=== PATIENT | male | born 1955 | race American Indian/Alaskan Native ===

== ENCOUNTER 2016-09-16 23:31 | Emergency (ER) | payer MEDICARE ==
[2016-09-17] MEDS ORDERED: TORADOL IM ONE (03:05)
[2016-09-17] MEDS ORDERED: BENADRYL PO ONE (03:05)
[2016-09-17] MEDS ORDERED: FLEXERIL PO ONE (03:05)
--- NOTE | 2016-09-17 03:11 | Emergency Department Report ---
HPI - General Chief Complaint: Headache Time Seen by Provider: 09/17/16 02:38 - HPI HPI: 60-year-old female who presents today with left-sided neck and left temporal headache 2 days. Patient states that he was applying pressure 104 and at her prior to the pain. Denies history of headaches. Denies head injury or loss of consciousness. Describes his pain as it is a 10 constant, throbbing pain that is worse with movement. Tried aspirin without relief. Denies fever, chills, nausea, vomiting, dizziness, confusion, change in vision, chest pain, shortness of breath, abdominal pain. Positive for history of hypertension and is currently taking atenolol and amlodipine with his last dose being yesterday morning. ED Past Medical Hx - Past Medical History Previous Medical History?: Yes Hx Hypertension: Yes Hx Heart Attack/AMI: Yes (mild heart attack 2004) Hx Congestive Heart Failure: No Hx Diabetes: No Hx Seizures: Yes ("pseudoseizures") Hx Asthma: No Hx COPD: No - Surgical History Past Surgical History?: Yes Additional Surgical History: Keloid removal - Social History Smoking Status: Never Smoker Substance Use Type: Marijuana, Non Opiate Pain, Prescribed - Medications Home Medications: Home Medications Medication Instructions Recorded Confirmed Last Taken Type amLODIPine [Norvasc] 10 mg PO DAILY #30 tablet 04/27/15 06/25/15 06/24/15 Rx 10 MG Aspirin [Aspirin BABY CHEW TAB] 81 mg PO QDAY #30 tab.chew 06/25/15 Unknown Rx Atenolol [Tenormin] 25 mg PO DAILY #30 tab 06/25/15 Unknown Rx levETIRAcetam [Keppra TAB] 1,000 mg PO BID #120 tablet 06/25/15 Unknown Rx Ibuprofen [Motrin] 600 mg PO Q8H PRN #40 tablet 12/11/15 Unknown Rx traMADol [Ultram] 50 mg PO Q6HR PRN #20 tablet 12/11/15 Unknown Rx Cyclobenzaprine [Flexeril] 10 mg PO TID PRN #14 tablet 09/17/16 Unknown Rx Naproxen [Naprosyn] 500 mg PO BID #30 tablet 09/17/16 Unknown Rx ED Review of Systems ROS: Stated complaint: HEADACHE LT SIDE OF FACE Other details as noted in HPI Constitutional: denies: chills, fever, malaise Eyes: denies: eye pain, vision change ENT: denies: ear pain, throat pain, congestion Respiratory: denies: cough, shortness of breath, wheezing Cardiovascular: denies: chest pain, palpitations Endocrine: no symptoms reported Gastrointestinal: denies: abdominal pain, nausea, vomiting Skin: denies: rash Neurological: headache. denies: weakness, numbness, paresthesias Physical Exam - Physical Exam Vital Signs: Vital Signs 09/16/16 23:34 Temperature 98 F Pulse Rate 69 Respiratory 18 Rate Blood Pressure 160/95 Blood Pressure 160/95 [Left] O2 Sat by Pulse 99 Oximetry Physical Exam: GENERAL: The patient is well-developed and well-nourished. Patient is in NAD. HEAD: Normocephalic. Atraumatic. Tenderness to palpation over the left temporal artery region as well as left frontal headache. EYES: Extraocular motions are intact, PERRL. No conjunctival injection noted. No drainage or bleeding. EARS: External auditory canals and tympanic membranes clear; hearing grossly intact. NOSE: Normal nasal mucosa with no nasal discharge. THROAT: No erythema, swelling or exudates. NECK: Full range of motion. No midline tenderness. Left-sided paraspinal tenderness to palpation. CHEST/LUNGS: Clear to auscultation throughout. HEART/CARDIOVASCULAR: Regular rate and rhythm. No murmurs, rubs or gallops. ABDOMEN: Abdomen is soft, nontender. Bowel sounds normoactive. No guarding or rebound tenderness. EXTREMITIES: Peripheral pulses intact. Capillary refill less than 2 seconds. NEURO: Alert and oriented x 3. Normal gait. CN II-XII intact. Symmetrical strength and sensation. Negative Romberg or pronator drift. Cerebellar testing normal. GCS score of 15. ED Course Vital Signs 09/16/16 23:34 Temperature 98 F Pulse Rate 69 Respiratory 18 Rate Blood Pressure 160/95 Blood Pressure 160/95 [Left] O2 Sat by Pulse 99 Oximetry ED Medical Decision Making - Lab Data Result diagrams: 09/17/16 03:37 09/17/16 03:37 Vital Signs 09/16/16 23:34 Temperature 98 F Pulse Rate 69 Respiratory 18 Rate Blood Pressure 160/95 Blood Pressure 160/95 [Left] O2 Sat by Pulse 99 Oximetry Lab Results 09/17/16 09/17/16 Range/Units 03:37 03:37 WBC 7.7 (4.5-11.0) K/mm3 RBC 4.47 (3.65-5.03) M/mm3 Hgb 13.5 (11.8-15.2) gm/dl Hct 40.7 (35.5-45.6) % MCV 91 (84-94) fl MCH 30 (28-32) pg MCHC 33 (32-34) % RDW 14.2 (13.2-15.2) % Plt Count 278 (140-440) K/mm3 Lymph % (Auto) 31.5 (13.4-35.0) % [place] % (Auto) 9.2 H (0.0-7.3) % Eos % (Auto) 6.2 H (0.0-4.3) % Baso % (Auto) 1.2 (0.0-1.8) % Lymph # 2.4 (1.2-5.4) K/mm3 [place] # 0.7 (0.0-0.8) K/mm3 Eos # 0.5 H (0.0-0.4) K/mm3 Baso # 0.1 (0.0-0.1) K/mm3 Seg Neutrophils % 51.9 (40.0-70.0) % Seg Neutrophils # 4.0 (1.8-7.7) K/mm3 ESR 28 (0-20) mm/Hr Sodium 142 (137-145) mmol/L Potassium 4.5 (3.6-5.0) mmol/L Chloride 102.2 (98-107) mmol/L Carbon Dioxide 26 (22-30) mmol/L Anion Gap 18 mmol/L BUN 16 (9-20) mg/dL Creatinine 1.1 (0.8-1.5) mg/dL Estimated GFR > 60 ml/min BUN/Creatinine Ratio 14.54 % Glucose 99 (75-100) mg/dL Calcium 8.6 (8.4-10.2) mg/dL - Medical Decision Making 60-year-old male presents today with left-sided neck and left-sided temporal headache 2 days. His lab results are within normal limits. Patient was given Toradol, Benadryl, Flexeril and reports symptomatic relief. Patient is in no acute distress at this time. He will be discharged home and is encouraged to follow up with a primary care provider. He will be sent home on Flexeril and naproxen and is encouraged to return to the emergency room for any worsening symptoms. Critical care attestation.: If time is entered above; I have spent that time in minutes in the direct care of this critically ill patient, excluding procedure time. ED Disposition Clinical Impression: Cervical strain Qualifiers: Encounter type: initial encounter Qualified Code(s): S16.1XXA - Strain of muscle, fascia and tendon at neck level, initial encounter Headache Qualifiers: Headache type: unspecified Headache chronicity pattern: acute headache Intractability: not intractable Qualified Code(s): R51 - Headache Disposition: DISCHARGED TO HOME OR SELFCARE Is pt being admited?: No Does the pt Need Aspirin: No Condition: Stable Instructions: Muscle Strain (ED), Acute Headache (ED) Additional Instructions: Follow-up with primary care provider. Return to the emergency department if symptoms worsen. Prescriptions: Cyclobenzaprine [Flexeril] 10 mg PO TID PRN #14 tablet PRN Reason: Muscle Spasm Naproxen [Naprosyn] 500 mg PO BID #30 tablet Referrals: BREN[facility]U [Other] - 3-5 Days [facility] [Outside] - 3-5 Days Forms: Work/School Release Form(ED), Accompanied Note Time of Disposition: 04:30
[2016-09-17 03:53] LABS: Basophils % (Auto) 1.2 % (0.0-1.8); Eosinophils % (Auto) 6.2 % (0.0-4.3); Hematocrit 40.7 % (35.5-45.6); Hemoglobin 13.5 gm/dl (11.8-15.2); Mean Corpuscular HGB Conc 33 % (32-34); Mean Corpuscular Hemoglobin 30 pg (28-32); Mean Corpuscular Volume 91 fl (84-94); Platelet Count 278 K/mm3 (140-440); Red Blood Count 4.47 M/mm3 (3.65-5.03); Red Cell Distribution Width 14.2 % (13.2-15.2); White Blood Count 7.7 K/mm3 (4.5-11.0)
[2016-09-17 04:06] LABS: Anion Gap 18 mmol/L; BUN/Creatinine Ratio 14.54; Blood Urea Nitrogen 16 mg/dL (9-20); Calcium 8.6 mg/dL (8.4-10.2); Carbon Dioxide 26 mmol/L (22-30); Chloride 102.2 mmol/L (98-107); Glucose 99 mg/dL (75-100); Potassium 4.5 mmol/L (3.6-5.0); Sodium 142 mmol/L (137-145)
[2016-09-17 04:17] LABS: Erythrocyte Sedimentation Rate 28 mm/Hr (0-20)
[2016-09-17 04:49] VITALS: BP 142/84
== END 2016-09-17 04:52 | disposition home or self-care (01) ==
LOC: ED 23:31
DX: S16.1XXA Strain of muscle, fascia and tendon at neck level, initial encounter (principal); R51 Headache; I10 Essential (primary) hypertension; F12.10 Cannabis abuse, uncomplicated; Z98.890 Other specified postprocedural states; X58.XXXA Exposure to other specified factors, initial encounter; Y93.89 Activity, other specified; Y99.8 Other external cause status; Y92.89 Other specified places as the place of occurrence of the external cause
CPT/HCPCS: 36415; 80048; 85025; 85652; 96372; 99283; J1885